=== PATIENT | male | born 1995 | race Caucasian/White ===

== ENCOUNTER 2022-10-04 17:24 | Emergency (ER) | payer MEDICAID, OTHER ==
[~2022-10-04] VITALS: Ht 177.8 cm; Wt 105.0 kg
[2022-10-04 17:32] VITALS: BP 136/82
[2022-10-04] MEDS ORDERED: LEVETIRACETAM 500MG/5ML CUP PO ONE (19:30)
[2022-10-04] MEDS ORDERED: KEPP500 MT (23:43)
== END 2022-10-05 00:29 | disposition home or self-care (01) ==
LOC: ER 17:24
DX: R56.9 Unspecified convulsions (principal)
CPT/HCPCS: 99283